=== PATIENT | female | born 1945 | race Caucasian/White ===

== ENCOUNTER 2016-09-30 07:20 | Day surgery (SDC) | payer MEDICARE ==
[2016-09-30] MEDS ORDERED: FENTANYL 250 MCG/5 ML AMP IV PRN (07:23)
[2016-09-30] MEDS ORDERED: MIDAZOLAM HCL 5 MG/5 ML VIAL IV PRN (07:23)
[2016-09-30] MEDS ORDERED: IV START KIT ONE (07:24)
[2016-09-30] MEDS ORDERED: LACTATED RINGERS 1,000 ML IV SCH (07:30)
[2016-09-30] MEDS ORDERED: FENTANYL 5 ML ONE (08:18)
[2016-09-30] MEDS ORDERED: MIDAZOLAM HCL 5 MG/5 ML VIAL ONE (08:18)
== END 2016-09-30 09:29 | disposition home or self-care (01) ==
LOC: SDC 07:20
PROVIDERS: ATTEND Internal Medicine Gastroenterology
PROC: 0DJD8ZZ Inspection of Lower Intestinal Tract, Via Natural or Artificial Opening Endoscopic (ICD-10-PCS; principal; 2016-09-30)
DX: Z12.11 Encounter for screening for malignant neoplasm of colon (principal); K63.89 Other specified diseases of intestine; M79.1 Myalgia; Z88.2 Allergy status to sulfonamides; Z88.8 Allergy status to other drugs, medicaments and biological substances; Z88.5 Allergy status to narcotic agent; Z88.1 Allergy status to other antibiotic agents
CPT/HCPCS: J3010; J2250; J7120; G0121